=== PATIENT | female | born 1950 | race Caucasian/White ===

== ENCOUNTER 2023-05-11 15:05 | Outpatient (CLI) | payer MEDICARE, OTHER | END 2023-05-11 15:06 | disposition home or self-care (01) | LOC: BICMAMMO 15:05 | PROVIDERS: ATTEND Internal Medicine Rheumatology | DX: Z13.820 Encounter for screening for osteoporosis (principal); M85.89 Other specified disorders of bone density and structure, multiple sites | CPT/HCPCS: 77080 ==